=== PATIENT | female | born 1960 | race Caucasian/White ===

== ENCOUNTER 2024-04-06 01:35 | Emergency (ER) | payer MEDICARE, BC, SELFPAY ==
[2024-04-06 01:50] VITALS: BP 150/91; PULSE 98; RESP 17; TEMP 36.7; O2SAT 96
--- NOTE | 2024-04-06 02:12 | PD.EDRME ---
Rapid Medical Screening Exam RME Arrival date/time: 04/06/24 01:35 63-year-old female with past medical history of mastocytosis presents emergency department complaining rash/wound behind right ear, back of head, and abdomen for several days. Chief Complaint: Ear Time Seen by Provider: 04/06/24 01:59 Vital signs: Vital Signs Temperature 98.1 F 04/06/24 01:50 Pulse Rate 98 04/06/24 01:50 Respiratory Rate 17 04/06/24 01:50 Blood Pressure 150/91 H 04/06/24 01:50 Pulse Oximetry (%) 96 04/06/24 01:50 Oxygen Delivery Method Room Air 04/06/24 01:50 Vital signs reviewed by provider: Yes
[2024-04-06] MEDS: DiphenhydrAMINE 25 MG CAPSULE PO (02:22)
[2024-04-06] MEDS: FAMOTIDINE 20 MG TABLET 40 MG PO (02:22)
[2024-04-06 02:45] LABS: Basophils # (Auto) 0.1 Thou/mm3 (0.0-0.2); Basophils % (Auto) 1 % (0-2.5); Eosinophils # (Auto) 0.1 Thou/mm3 (0.0-0.5); Eosinophils % (Auto) 1 % (0-10); Hematocrit 45.4 % (36.0-46.0); Hemoglobin 15.1 g/dL (12.0-16.0); Immature Granulocytes % (Auto) 1 % (0-0); Immature Granulocytes Auto 0.06 Thou/mm3 (0.00-0.00); Lymphocytes # (Auto) 2.9 Thou/mm3 (1.0-4.8); Lymphocytes % (Auto) 25 % (10-50); Mean Corpuscular HGB Conc 33.3 g/dl (31.0-37.0); Mean Corpuscular Hemoglobin 34.4 pg (25.0-35.0); Mean Corpuscular Volume 103 fL (80-100); Monocytes # (Auto) 0.7 Thou/mm3 (0.0-0.8); Monocytes % (Auto) 6 % (0-12); Neutrophils % (Auto) 68 % (37-80); Nucleated Red Blood Cell % 0 /100 WBC (0); Platelet Count 287 Thou/mm3 (140-440); RDW Standard Deviation 62.5 fL (36.4-46.3); Red Blood Count 4.39 Miln/mm3 (4.00-5.20); White Blood Count 11.8 Thou/mm3 (3.6-11.0)
[2024-04-06 02:57] LABS: Alanine Aminotransferase 22 U/L (10-49); Albumin, Serum 4.4 gm/dL (3.4-4.8); Albumin/Globulin Ratio 2.2 (1.2-2.2); Alkaline Phosphatase 61 U/L (46-116); Anion Gap 2 (7-16); Aspartate Amino Transferase 18 U/L (0-34); BUN/Creatinine Ratio 8 Ratio (12-20); Bilirubin,Total 0.4 mg/dL (0.3-1.2); Blood Urea Nitrogen 8 mg/dL (9-23); Calcium 9.4 mg/dL (8.3-10.6); Calcium (Corrected) 9.4 mg/dL (8.5-10.1); Carbon Dioxide 30.9 mMol/L (20.0-31.0); Chloride 111 mMol/L (98-107); Glucose 98 mg/dL (74-106); Osmolality,Calculated 285 (275-295); Potassium 4.4 mMol/L (3.4-5.1); Sodium 144 mMol/L (136-145); Total Protein 6.4 gm/dL (5.7-8.2); eGFR > 60 See Note
--- NOTE | 2024-04-06 03:56 | PC.NURSE ---
SPOKE WITH PT IN RME 2. PT STATED THAT SHE DIDN'T WANT SMOKING PIPE DRILLER AND THREADER TO HELP HER. SHE STATED SMOKING PIPE DRILLER AND THREADER WAS HOSTILE TO HER AND THE STORE COORDINATOR DIDN'T REALLY KNOW HOW TO TREAT HER CONDITION. PT STATED THE MEDS STORE COORDINATOR ORDERED FOR HER SHE ALREADY HAS AT HOME. I ASKED HOW COULD I ASSIST HER AND SHE SAID SHE DIDN'T KNOW. I ASKED HER IF I COULD HAVE HER MOVE TO THE [facility]LEBO ROOM TO HAVE HER BLOOD DRAWN AND SHE STATED THAT I JUST WANTED TO SEE IF SHE COULD WALK. I TOLD HER WE WOULD BE WITH HER SOON WE WERE ABLE. I WAS CALLED TO THE FRONT LOBBY IN FRONT OF THE TRIAGE DESK TO SPEAK WITH PT A SECOND TIME. PT WAS STATING THAT SHE HAD HER SPECIALIST ON THE PHONE I TOLD HER THAT IF THE DR NEEDED TO SPEAK WITH HER SPECIALIST HE WOULD PT BROUGHT UP THE SMOKING PIPE DRILLER AND THREADER ISSUE ONE MORE TIME AND POLITELY TOLD HER WE HAD ADDRESSED THAT ISSUE ALREADY. SHE BECAME VERY RUDE AND SAID SHE WAS GOING TO START FILMING AND I INFORMED HER THAT SHE WAS NOT ALLOWED TO FILM INSIDE HOSPITAL OR STAFF. SHE SAID THAT I DON'T PAY HER PHONE BILL SO SHE COULD FILM IF SHE WANTS. I ASKED SECURITY TO ESCORT PT OUT OF THE LOBBY IF SHE STARTED TO RECORD. 0400 I WAS CALLED TO [facility] ONCE AGAIN I WAS INFORMED PT HAD FALLEN IN THE LOBBY. PT WS SITTING IN A WHEELCHAIR AND SOMEHOW ENDED UP ON THE FLOOR PT STATED TO STAFF THAT SHE WANTED TO MAKE A REPORT.
--- NOTE | 2024-04-06 04:27 | PD.EDEAR ---
ED Ear RME/HPI General Chief complaint: Ear Stated complaint: RIGHT EAR PAIN X 3 DAYS Time Seen by Provider: 04/06/24 01:59 Arrival date/time: 04/06/24 01:35 RME / HPI RME / HPI Narrative: 04/06/24 01:35 63-year-old female with past medical history of mastocytosis presents emergency department complaining rash/wound behind right ear, back of head, and abdomen for several days. ------ Dr. Clifford?s Main ED Evaluation: 63yo female with a history of mastocytosis presents to the ED for a chief complaint of a rash to behind her right ear. Patient states she woke up tonight having significant pain to her behind her right ear, reporting these symptoms usually occur when she has flare ups of her autoimmune disease. She states she is normally able to sleep off the pain, but was unable to tonight, so she came in for evaluation. Patient denies any fever, chills or any other associated symptoms. Patient states she has a follow-up with her skewer up, Dr. Smith, on Saturday for antiinflammatory shots. Related Data Home Medications ?Medication ?Instructions ?Recorded ?Confirmed atomoxetine 40 mg capsule 80 mg PO QDAY 06/16/18 06/11/23 (Strattera) atorvastatin 20 mg tablet 20 mg PO QPM 06/16/18 06/11/23 buspirone 15 mg tablet 15 mg PO BID 06/16/18 06/11/23 escitalopram oxalate 20 mg tablet 20 mg PO QDAY 06/16/18 06/11/23 (Lexapro) spironolactone 25 mg tablet 25 mg PO QDAY 06/16/18 06/11/23 loratadine 10 mg tablet (Claritin) 10 mg PO QDAY 02/02/19 06/11/23 cimetidine 400 mg tablet 400 mg PO QHS 04/18/21 06/11/23 meloxicam 15 mg tablet 7.5 mg PO BID 04/18/21 06/11/23 folic acid 1 mg tablet 1 mg PO QDAY 06/11/23 06/11/23 methotrexate 2.5 mg/mL oral 2.5 mg PO QWEEK 06/11/23 06/11/23 solution montelukast 10 mg tablet 10 mg PO QPM 06/11/23 06/11/23 Previous Rx's ?Medication ?Instructions ?Recorded acetaminophen 650 mg 650 mg PO Q8H PRN fever or pain 10/31/21 tablet,extended release #30 tabs pantoprazole 40 mg tablet,delayed 40 mg PO QDAY #30 tabs 06/17/23 release prednisone 10 mg tablet See Taper PO QDAY #70 tabs 06/17/23 ibuprofen 600 mg tablet 600 mg PO Q8H PRN pain #7 tabs 10/11/23 Allergies Allergy/AdvReac Type Severity Reaction Status Date / Time oxycodone Allergy Intermediate VOMITING Verified 04/06/24 01:38 Penicillins Allergy Intermediate HIVES Verified 04/06/24 01:38 Sulfa (Sulfonamide Allergy Intermediate HIVES Verified 04/06/24 01:38 Antibiotics) venlafaxine Allergy Intermediate UNKNOWN Verified 04/06/24 01:38 Review of Systems Review of Systems Systems Reviewed: All systems reviewed, normal except as documented ED Exam Narrative Physical exam: GENERAL APPEARANCE: alert and oriented x 4, well-developed, well-nourished, no acute distress VITALS: All vitals were reviewed and the pulse ox is 96% on room air, which is normal according to my interpretation. HEENT: Normocephalic, atraumatic; pupils equal, round, reactive to light; EOMI; mucous membranes pink, moist; oropharynx clear NECK: Supple LUNGS: CTABL; no wheezes, no rales, no rhonchi HEART: Regular rate, regular rhythm; normal S1, S2; no murmurs ABDOMEN: non distended; normal BS; soft, no tenderness, no guarding, no rebound; no masses, no organomegaly, no hernia BACK: no CVA tenderness EXTREMITIES: atraumatic; no edema NEUROLOGIC: awake; alert and oriented x4; cranial nerves II-XII grossly intact; no focal sensory or motor deficits PSYCHIATRIC: appropriate mood and affect SKIN: warm, dry, normal color; skin breakdown to the inferior posterior right ear with minimal surrounding erythema and exquisite tenderness, but no active bleeding; several tiny lesions to the posterior scalp that are similar in appearance Course Quality Measures none Orders Category Date Time Status IV [Insert IV] NOW Care 04/06/24 04:29 Active CBC Stat Lab 04/06/24 02:30 Completed CMP [Comprehensive Metabolic Panel] Stat Lab 04/06/24 02:30 Completed Acetaminophen Ivpb [Ofirmev Inj] Med 04/06/24 04:29 Discontinued 1,000 mg in 100 ml IV X1 Dexamethasone Inj [Decadron Inj] Med 04/06/24 04:45 Discontinued 10 mg IVP X1 ONE DiphenhydrAMINE [Benadryl] Med 04/06/24 02:11 Discontinued 25 mg PO X1 ONE Famotidine [Pepcid] Med 04/06/24 02:11 Discontinued 40 mg PO X1 ONE Reevaluation(s) Reevaluation #1: Patient is resting comfortably at this time. Patient is stable to be discharged home. Time: 05:25 Vital Signs Vital signs: Vital Signs Temperature 98.1 F 04/06/24 01:50 Pulse Rate 98 04/06/24 01:50 Respiratory Rate 17 04/06/24 01:50 Blood Pressure 150/91 H 04/06/24 01:50 Pulse Oximetry (%) 96 04/06/24 01:50 Oxygen Delivery Method Room Air 04/06/24 01:50 Ear MDM Narrative MDM Narrative:: Scribe Attestation: 04/06/24 - Reyna Avalos am scribing for and in the presence of Dr. Clifford. Patient data External records reviewed:: [facility] previous records (Per chart review, patient was seen here on 10/11/23 for otitis externa.) Clinical information provided by:: patient Social determinants that could affect healthcare access:: none Patient has the following chronic illnesses:: mastocytosis How is presenting disease/condition affected by chronic disease/condition?: caused by Evaluation data The following diagnostics were reviewed and interpreted by me:: lab results Lab and/or radiology exams considered but not ordered:: none Interpretation Summary: WBC count is 11.8, CMP is normal, according to my interpretation. Medications / Prescriptions Medications or Prescriptions considered but not ordered:: none Medication administrations:: Medication Administration History Discontinued Medications Dexamethasone Sodium Phosphate (Dexamethasone Sod Phos Inj 10 Mg/Ml Vial) 10 mg IVP X1 ONE; Protocol Stop: 04/06/24 04:46 Last Admin: 04/06/24 05:00 Dose: 10 mg Documented By: RAMA Diphenhydramine HCl (Diphenhydramine 25 Mg Capsule) 25 mg PO X1 ONE Stop: 04/06/24 02:12 Last Admin: 04/06/24 02:22 Dose: 25 mg Documented By: KF Famotidine (Famotidine 20 Mg Tablet) 40 mg PO X1 ONE Stop: 04/06/24 02:12 Last Admin: 04/06/24 02:22 Dose: 40 mg Documented By: TABITHA Acetaminophen (Ofirmev Inj) 1,000 mg in 100 mls @ 250 mls/hr IV X1 ONE Stop: 04/06/24 04:52 Last Infusion: 04/06/24 05:22 Dose: Infused Documented By: Admin: 04/06/24 04:52 Dose: 250 mls/hr Documented By: RAMA see above Consultations Consultation(s) initiated? (list below): No Diagnosis Ear Differential Diagnosis: other (mastocytosis flare, cellulitis, shingles) Most likely diagnosis given after review of the tests above:: see below Admission Indicated Admission indicated?: not indicated Admission Request Was there a request for admission?: No Disposition Plan Disposition Plan: Discharge Discharge Attestation Discharge Attestation: The patient and all family members were given an opportunity to ask questions and understood the discharge instructions. Discharge instructions specifically effects, indications for sooner follow up or return to the emergency department, and the expected course of current diagnosis. Patient condition: Stable Medical Decision Making MDM Narrative MDM Narrative: Scribe Attestation: 04/06/24 - Reyna Avalos am scribing for and in the presence of Dr. Clifford. Lab Data 04/06/24 02:30 04/06/24 02:30 Labs: Lab Results 04/06/24 Range/Units 02:30 WBC 11.8 H (3.6-11.0) Thou/mm3 RBC 4.39 (4.00-5.20) Miln/mm3 Hgb 15.1 (12.0-16.0) g/dL Hct 45.4 (36.0-46.0) % MCV 103 H (80-100) fL MCH 34.4 (25.0-35.0) pg MCHC 33.3 (31.0-37.0) g/dl RDW Std Deviation 62.5 H (36.4-46.3) fL Plt Count 287 (140-440) Thou/mm3 Neut % (Auto) 68 (37-80) % Lymph % (Auto) 25 (10-50) % [place] % (Auto) 6 (0-12) % Eos % (Auto) 1 (0-10) % Baso % (Auto) 1 (0-2.5) % Neut # (Auto) 8.0 H (1.8-7.7) Thou/mm3 Lymph # (Auto) 2.9 (1.0-4.8) Thou/mm3 [place] # (Auto) 0.7 (0.0-0.8) Thou/mm3 Eos # (Auto) 0.1 (0.0-0.5) Thou/mm3 Baso # (Auto) 0.1 (0.0-0.2) Thou/mm3 Immature Gran # (Auto) 0.06 H (0.00-0.00) Thou/mm3 Absolute Nucleated RBC 0.00 (0.00-0.00) Thou/mm3 Immature Gran % 1 H (0-0) % Nucleated RBC % 0 (0) /100 WBC Sodium 144 (136-145) mMol/L Potassium 4.4 (3.4-5.1) mMol/L Chloride 111 H (98-107) mMol/L Carbon Dioxide 30.9 (20.0-31.0) mMol/L Anion Gap 2 L (7-16) BUN 8 L (9-23) mg/dL Creatinine 1.0 (0.6-1.3) mg/dL Estim Creat Clear Calc Not Performed. eGFR > 60 (60 - ) See Note BUN/Creatinine Ratio 8 L (12-20) Ratio Glucose 98 (74-106) mg/dL Calculated Osmolality 285 (275-295) Calcium 9.4 (8.3-10.6) mg/dL Corrected Calcium 9.4 (8.5-10.1) mg/dL Total Bilirubin 0.4 (0.3-1.2) mg/dL AST 18 (0-34) U/L ALT 22 (10-49) U/L Alkaline Phosphatase 61 (46-116) U/L Total Protein 6.4 (5.7-8.2) gm/dL Albumin 4.4 (3.4-4.8) gm/dL Globulin 2.0 L (2.3-3.5) gm/dL Albumin/Globulin Ratio 2.2 (1.2-2.2) Discharge Plan Plan Patient Disposition: HOME (Self Care) Disposition Comment: Stable for discharge Patient condition on transfer: Stable Prescriptions/Referrals Prescriptions/Med Rec: No Action loratadine [Claritin] 10 mg tablet 10 mg PO QDAY cimetidine 400 mg tablet 400 mg PO QHS meloxicam 15 mg tablet 7.5 mg PO BID atorvastatin 20 mg Tablet 20 mg PO QPM spironolactone 25 mg Tablet 25 mg PO QDAY buspirone 15 mg Tablet 15 mg PO BID escitalopram oxalate [Lexapro] 20 mg Tablet 20 mg PO QDAY atomoxetine [Strattera] 40 mg Capsule 80 mg PO QDAY acetaminophen 650 mg tablet extended release 650 mg PO Q8H PRN (Reason: fever or pain) Qty: 30 0RF Rx Instructions: swallow whole; do not chew/break/dissolve/open methotrexate 2.5 mg/mL Solution 2.5 mg PO QWEEK folic acid 1 mg tablet 1 mg PO QDAY Patient Comments: TAKE ONE TABLET BY MOUTH EVERY DAY VITAMIN montelukast 10 mg tablet 10 mg PO QPM Patient Comments: TAKE ONE TABLET BY MOUTH EVERY EVENING FOR BREATHING prednisone 10 mg tablet See Taper PO QDAY Qty: 70 0RF Taper: Prednisone Taper 40 mg DAILY for 7 Days and 0 Hour 30 mg DAILY for 7 Days and 0 Hour 20 mg DAILY for 7 Days and 0 Hour 10 mg DAILY for 7 Days and 0 Hour pantoprazole 40 mg tablet,delayed release (DR/EC) 40 mg PO QDAY Qty: 30 0RF ibuprofen 600 mg tablet 600 mg PO Q8H PRN (Reason: pain) Qty: 7 0RF Referrals: Ed Dove MD [Primary Care Provider] - In 1 week Problem List Clinical Impression: Skin ulcer Patient/Caregiver Discharge Instructions Discharge Activity: activity as tolerated Education Materials: Wound Care Additional Instructions: Please follow-up with your primary care doctor as well as your specialist at your earliest convenience. You are more than welcome to return to the ER at any time if you have any worsening or if you are not improving within the next 48 hours. Print Language: Danish Stand Alone Forms: Lexi Award Info., Patient Portal Info Letter
[2024-04-06 04:51] VITALS: BP 184/98; PULSE 89; RESP 17; TEMP 36.8; O2SAT 98
[2024-04-06] MEDS: ACETAMINOPHEN IVPB 1,000 MG/100 ML VIAL 250 MG IV (04:52)
[2024-04-06] MEDS: DEXAMETHASONE SOD PHOS INJ 10 MG/ML VIAL IVP (05:00)
--- NOTE | 2024-04-06 05:10 | PC.NURSE ---
PT MADE COMFORTABLE IN ROOM, INTRODUCTION MADE, IV PLACED, MEDS ADMINISTERED.FRANKIE IN LOWEST LOCKED POSITION, SIDE RAILS UP, CALL LIGHT WITHIN REACH, HOOKED UP TO HEAD TRIMMER
--- NOTE | 2024-04-06 05:28 | PC.NURSE ---
PT RESTING COMFORTABLY IN GURNEY, ASLEEP, SNORING. MD MADE AWARE
[2024-04-06 05:42] VITALS: BP 157/95; PULSE 82; RESP 19; TEMP 36.7; O2SAT 97
== END 2024-04-06 05:47 | disposition home or self-care (01) ==
PROVIDERS: Emergency Provider Emergency Medicine; PCP Family Medicine
DX: L98.499 Non-pressure chronic ulcer of skin of other sites with unspecified severity (principal); D47.09 Other mast cell neoplasms of uncertain behavior
CPT/HCPCS: 36415; 80053; 81001; 85025; 96365; 96375; 99284; J0131; J1100; A9270

== ENCOUNTER 2024-06-22 09:51 | Emergency (ER) | payer OTHER, BC, SELFPAY ==
[2024-06-22 09:53] VITALS: BMI 37.2
[2024-06-22 10:00] VITALS: BP 130/86; PULSE 87; RESP 18; TEMP 36.5; O2SAT 97
--- NOTE | 2024-06-22 10:12 | EDNOTE_ITS ---
<Statement entered by Lucy Villegas MD - 06/28/24 02:10> As co-signing physician, I was present and available for consult prn. I concur with the plan and care as documented by the midlevel provider. Upper Extremity Injury RME/HPI General Chief Complaint: Hand/Wrist Problems Stated Complaint: BURN TO L HAND 2 DAYS AGO Time Seen by Provider: 06/22/24 09:54 Arrival date/time: 06/22/24 09:51 63-year-old female with history of mastocytosis being followed by dermatology presents with concerns that she burned her left hand 2 days ago with hot wax Limitations: no limitations Related Data Home Medications ?Medication ?Instructions ?Recorded ?Confirmed atomoxetine 40 mg capsule 80 mg PO QDAY 06/16/1806/10 (Strattera) atorvastatin 20 mg tablet 20 mg PO QPM 06/16/18 buspirone 15 mg tablet 15 mg PO BID 06/16/18 escitalopram oxalate 20 mg tablet 20 mg PO QDAY 06/11/23 (Lexapro) spironolactone 25 mg tablet 25 mg PO QDAY 06/16/18 loratadine 10 mg tablet (Claritin) 10 mg PO QDAY 02/0206/11/23 cimetidine 400 mg tablet 400 mg PO QHS 04/18/2106/10 meloxicam 15 mg tablet 7.5 mg PO BID 04/18/2106/10 folic acid 1 mg tablet 1 mg PO QDAY 06/11/23 methotrexate 2.5 mg/mL oral 2.5 mg PO QWEEK 06/11/23 0 06/11/23 solution montelukast 10 mg tablet 10 mg PO QPM 06/11/23 Previous Rx's ?Medication ?Instructions ?Recorded pantoprazole 40 mg tablet,delayed 40 mg PO QDAY #30 ta bs 06/17/23 release prednisone 10 mg tablet See Taper PO QDAY #70 tabs 0 06/17/23 bacitracin 500 unit/gram topical 1 applic topical TID 7 days #28.4 06/22/24 ointment grams bacitracin 500 unit/gram topical 1 applic topical TID 7 days #28.4 06/22/24 ointment grams doxycycline hyclate 100 mg tablet 100 mg PO BID #14 ta bs 06/22/24 tramadol 50 mg tablet 50 mg PO BID PRN pain #8 tab s 06/22/24 Allergies Allergy/AdvReac Type Severity Reaction Status Date / Time oxycodone Allergy Intermediate VOMITING Verified 06/22/24 09:53 Penicillins Allergy Intermediate HIVES Verified 06/22/24 09:53 Sulfa (Sulfonamide Allergy Intermediate HIVES Verified 06/22/24 09:53 Antibiotics) venlafaxine Allergy Intermediate UNKNOWN Verified 06/22/24 09:53 Review of Systems Review of Systems Systems Reviewed: All systems reviewed, normal except as documented Constitutional Constitutional: Reports system reviewed and no additional complaints, except as documented, Denies fever(s) and Denies headache(s) Eyes Eyes: Reports system reviewed and no additional complaints, except as documented and Denies blurry vision ENT Ears, Nose, Mouth, and Throat: Reports system reviewed and no additional complaints, except as documented, Denies headache(s), Denies nasal congestion and Denies nasal discharge Cardiovascular Cardiovascular: Reports system reviewed and no additional complaints, except as documented, Denies chest pain and Denies dyspnea Respiratory Respiratory: Reports system reviewed and no additional complaints, except as documented, Denies chest congestion, Denies cough and Denies dyspnea Gastrointestinal Gastrointestinal: Reports system reviewed and no additional complaints, except as documented and Denies abdominal pain Integumentary/Breasts Skin/Breast: Reports system reviewed and no additional complaints, except as documented, Reports erythema (Left hand) and Denies rash Neurologic Neurologic: Reports system reviewed and no additional complaints, except as documented, Reports as per HPI and Denies headache(s) Past Medical History Past Medical History CARDIAC: Positive Hypercholesterolemia and Hypertension; Negative Cardiac Disorders or Congestive Heart Failure RESPIRATORY: Negative Chronic Obstructive Pulmonary Disease (COPD) or Asthma GENITOURINARY: Negative Renal Disease ENDOCRINE: Positive Endocrine Disorders and Diabetes Mellitus Type 2; Negative Diabetes Mellitus Type 1 HEMATOLOGIC: Positive Blood Disorders; Negative Sickle Cell Disease PSYCHO/SOCIAL: Positive Depression and Post Traumatic Stress Disorder Surgical History SURGICAL: Positive Hysterectomy and Section Social History SMOKING STATUS: Current every day smoker ED Exam General Limitations: Present no limitations General appearance: Present alert and in no apparent distress Head Head exam: Present atraumatic Eye Eye exam: Present normal appearance, PERRL and EOMI ENT ENT exam: Present normal exam, normal oropharynx and mucous membranes moist Neck Neck exam: Present normal inspection, full ROM and trachea midline Chest Chest inspection: Present normal inspection and symmetric chest wall rise Respiratory Respiratory exam: Present normal lung sounds bilaterally Cardiovascular Cardiovascular exam: Present regular rate, normal rhythm and normal heart sounds Abdominal Exam Abdominal exam: Present soft and normal bowel sounds Extremities Exam Extremities exam: Present full ROM, tenderness, normal capillary refill and other (Burn left hand) Back Exam Back exam: Present normal inspection and full ROM Neurological Exam Neurological exam: Present alert, oriented X3 and CN II-XII intact Psychiatric Psychiatric exam: Present normal affect and normal mood Skin Skin exam: Present warm, dry, intact and normal color Course Quality Measures none Vital Signs Vital signs: Vital Signs Temperature 97.7 F 06/22/24 10:00 Pulse Rate 87 06/22/24 10:00 Respiratory Rate 18 06/22/24 10:00 Blood Pressure 130/86 H 06/22/24 10:00 Pulse Oximetry (%) 97 06/22/24 10:00 Oxygen Delivery Method Room Air 06/22/24 10:00 O2 saturation 97% on room air within normal Extremity Injury MDM Narrative MDM Narrative:: 63-year-old female with history of mastocytosis being followed by dermatology presents with concerns that she burned her left hand 2 days ago with hot wax On exam patient does have a burn to the left hand mostly in the fingers patient does have full range of motion reports no numbness or tingling Wounds irrigated bacitracin applied as well as Xeroform and bulky dressing Patient was discharged with antibiotics and pain medication Explained to the patient that hand britton can worsen as it has already been 2 days and patient has full range of motion neuro reports no significant swelling no numbness or tingling patient can be discharged home Explained to the patient that she should follow-up with her real estate appraiser as d iscussed for worsening symptoms or concerns she is instructed to return for reevaluation. I reiterated to the patient that if it symptoms persist or worsen she must return for reevaluation Patient data External records reviewed:: [facility] previous records Clinical information provided by:: patient Social determinants that could affect healthcare access:: none Patient has the following chronic illnesses:: None How is presenting disease/condition affected by chronic disease/condition?: no chronic disease Evaluation data The following diagnostics were reviewed and interpreted by me:: other (specify) Lab and/or radiology exams considered but not ordered:: N/A Interpretation Summary: N/A Medications / Prescriptions Medications or Prescriptions considered but not ordered:: Given Medication administrations:: Given Consultations Consultation(s) initiated? (list below): No Diagnosis Upper Extremity Injury Differential Diagnosis: other (First-degree burn, secondary burn, third-degree burn) Most likely diagnosis given after review of the tests above:: Burn Admission Indicated Admission indicated?: not indicated Admission Request Was there a request for admission?: No Disposition Plan Disposition Plan: Discharge Discharge Attestation Discharge Attestation: The patient and all family members were given an opportunity to ask questions and understood the discharge instructions. Discharge instructions specifically effects, indications for sooner follow up or return to the emergency department, and the expected course of current diagnosis. Patient condition: Stable Discharge Plan Plan Patient Disposition: HOME (Self Care) Disposition Comment: Stable Prescriptions/Referrals Prescriptions/Med Rec: New bacitracin 500 unit/gram ointment 1 applic topical TID 7 Days Qty: 28.4 0RF bacitracin 500 unit/gram ointment 1 applic topical TID 7 Days Qty: 28.4 0RF tramadol 50 mg tablet 50 mg PO BID PRN (Reason: pain) Qty: 8 0RF doxycycline hyclate 100 mg tablet 100 mg PO BID Qty: 14 0RF Discontinued acetaminophen 650 mg tablet extended release 650 mg PO Q8H PRN (Reason: fever or pain) Qty: 30 0RF Rx Instructions: swallow whole; do not chew/break/dissolve/open ibuprofen 600 mg tablet 600 mg PO Q8H PRN (Reason: pain) Qty: 7 0RF No Action loratadine [Claritin] 10 mg tablet 10 mg PO QDAY cimetidine 400 mg tablet 400 mg PO QHS meloxicam 15 mg tablet 7.5 mg PO BID atorvastatin 20 mg Tablet 20 mg PO QPM spironolactone 25 mg Tablet 25 mg PO QDAY buspirone 15 mg Tablet 15 mg PO BID escitalopram oxalate [Lexapro] 20 mg Tablet 20 mg PO QDAY atomoxetine [Strattera] 40 mg Capsule 80 mg PO QDAY methotrexate 2.5 mg/mL Solution 2.5 mg PO QWEEK folic acid 1 mg tablet 1 mg PO QDAY Patient Comments: TAKE ONE TABLET BY MOUTH EVERY DAY VITAMIN montelukast 10 mg tablet 10 mg PO QPM Patient Comments: TAKE ONE TABLET BY MOUTH EVERY EVENING FOR BREATHING prednisone 10 mg tablet See Taper PO QDAY Qty: 70 0RF Taper: Prednisone Taper 40 mg DAILY for 7 Days and 0 Hour 30 mg DAILY for 7 Days and 0 Hour 20 mg DAILY for 7 Days and 0 Hour 10 mg DAILY for 7 Days and 0 Hour pantoprazole 40 mg tablet,delayed release (DR/EC) 40 mg PO QDAY Qty: 30 0RF Referrals: Ed Dove MD [Primary Care Provider] - In 1 week Problem List Clinical Impression: Burn of hand, left Patient/Caregiver Discharge Instructions Education Materials: Burn Emergencies Additional Instructions: Please observe your symptoms carefully and should your symptoms persist or worsen you must return for reevaluation Please follow-up with your intelligence specialist Print Language: Azeri Stand Alone Forms: [employer]i Award Info., Work/School Release, Patient Portal Info Letter WILMAR/TATI Supervising Physician WILMAR/TATI Supervising Physician: Dr VILLEGAS
== END 2024-06-22 11:01 | disposition home or self-care (01) ==
PROVIDERS: Emergency Provider Emergency Medicine; PCP Family Medicine
DX: T23.102A Burn of first degree of left hand, unspecified site, initial encounter (principal); T31.0 Burns involving less than 10% of body surface; X19.XXXA Contact with other heat and hot substances, initial encounter
CPT/HCPCS: 99282